=== PATIENT | female | born 1950 | race Caucasian/White ===

== ENCOUNTER 2017-01-28 08:41 | Emergency (ER) | payer OTHER ==
[~2017-01-28] VITALS: Ht 160 cm; Wt 77.1 kg
--- NOTE | 2017-01-28 09:07 | ED MVC/FALL/TRAUMA COMPLAINT ---
History of Present Illness General Chief Complaint: Low Back Pain/Injury Stated Complaint: FALL BACK PAIN Source: patient, family Exam Limitations: no limitations Vital Signs & Intake/Output Vital Signs & Intake/Output Vital Signs Date Time Temp Pulse Resp B/P Pulse O2 O2 Flow FiO2 Ox Delivery Rate 01/28 1034 84 16 146/78 97 Room Air 01/28 1010 98 Room Air 01/28 0847 97.2 91 20 112/78 98 Room Air Allergies Coded Allergies: Sulfa (Sulfonamide Antibiotics) (HIVES 01/28/17) Reconcile Medications Alprazolam 1 MG TABLET 1 TAB PO BIDP PRN ANXIETY (Reported) Liraglutide (Victoza 2-[place]) 0.6 MG/0.1 ML (18 MG/3 ML) PEN.INJCTR DM (Reported) Triage Note: PT STATES SHE SLIPPED GETTING OUT OF BATHTUB AND HIT HER BACK IN THE MIDDLE ON THE TUB. PT DENIES HITTING HEAD. STATES NOW THE PAIN GOES AROUND HER TRUNK. STATES THIS HAPPENED YESTERDAY AND SHE COULDN'T SLEEP LAST NIGHT D/T PAIN Triage Nurses Notes Reviewed? yes HPI: Patient presents for evaluation of back and abdominal pain status post fall yesterday. Patient states that she slipped on a wet spot in the bathtub and fell back hitting the tub with her mid back. She had abrupt onset of continuous moderate to severe back pain that gets worse with movement. It is a sharp stabbing pain. She tried ibuprofen without relief. She denies any associated ecchymoses or soft tissue swelling. Past History Travel History Traveled to [place] past 21 day No Medical History Any Pertinent Medical History? see below for history Psychiatric: depression Endocrine: diabetes Surgical History Surgical History: non-contributory Psychosocial History What is your primary language Guatemalan Tobacco Use: Never used ETOH Use: denies use Illicit Drug Use: denies illicit drug use Family History Hx Contributory? No Review of Systems Review of Systems Constitutional: Reports: no symptoms. Eyes: Reports: no symptoms. Ears, Nose, Throat, Mouth: Reports: no symptoms. Respiratory: Reports: no symptoms. Cardiovascular: Reports: no symptoms. Gastrointestinal/Abdominal: Reports: no symptoms. Genitourinary: Reports: no symptoms. Musculoskeletal: Reports: see HPI. Skin: Reports: no symptoms. Neurological/Psychological: Reports: no symptoms. All Other Systems: Reviewed and Negative Physical Exam Physical Exam General Appearance: SEE BELOW Comments: Gen.: Well-nourished, well-developed, no acute respiratory distress. Head: Normocephalic, atraumatic, nontender. Eyes: Normal inspection bilaterally, kareem, EOMI Ears: Normal inspection bilaterally Nose: Normal inspection Throat/mouth : Moist mucosa Neck: Supple, full range of motion, no goiter, nontender Heart: Regular rate and rhythm, no murmurs rubs or gallops Lungs: Clear to auscultation bilaterally with normal air entry Chest: Nontender Back: Normal range of motion, tenderness over the mid back bilaterally without associated ecchymoses and soft tissue swelling or abrasion. Abdomen: Soft, nontender, nondistended, normal bowel sounds Pelvis: Stable and nontender Extremities: Normal range of motion grossly, no tenderness, no cyanosis clubbing or edema Neurologic: Cranial nerves grossly intact, speech is clear Skin: warm and dry and without ecchymoses or soft tissue swelling or erythema Psychiatric: Calm, cooperative, no apparent delusions or hallucinations Core Measures ACS in differential dx? No Severe Sepsis Present: No Septic Shock Present: No Progress Differential Diagnosis: CHEST TRAUMA, ABDOMINAL TRAUMA, BACK TRAUMA Plan of Care: Orders Procedure Date/time Status Saline Lock 01/28 907 Active URINALYSIS 01/28 907 Complete TROPONIN LEVEL 01/28 907 Complete PROTHROMBIN TIME 01/28 907 Complete LIPASE 01/28 907 Complete COMPREHENSIVE METABOLIC PANEL 01/28 09 Complete CBC WITHOUT DIFFERENTIAL 01/28 907 Complete Laboratory Tests 01/28/17 1140: Urine Color YEL, Urine Clarity CLEAR, Urine pH 6.5, Ur Specific [place] <= 1.005 , Urine Protein NEG, Urine Ketones NEG, Urine Nitrite NEG, Urine Bilirubin NEG, Urine Urobilinogen 0.2, Ur Leukocyte Esterase NEG, Ur Microscopic EXAM NOT REQUIRED, Urine Hemoglobin NEG, Urine Glucose 500 H 01/28/17 0920: Anion Gap 7, Estimated GFR > 60, BUN/Creatinine Ratio 16.7, Glucose 223 H, Calcium 9.0, Total Bilirubin 0.8, AST 129 H, ALT 79 H, Alkaline Phosphatase 122, Troponin I < 0.01, Total Protein 7.0, Albumin 3.8, Globulin 3.2, Albumin/ Globulin Ratio 1.2, Lipase 149, PT 12.5, INR 1.19, CBC w Diff NO MAN DIFF REQ, RBC 4.93, MCV 82.6, MCH 26.7 L, RDW 16.2 H, MPV 9.6, Gran % 67.3, Lymphocytes % 24.8, Monocytes % 6.3, Eosinophils % 1.2, Basophils % 0.4, Absolute Granulocytes 5.4, Absolute Lymphocytes 2.0, Absolute Monocytes 0.5, Absolute Eosinophils 0.1, Absolute Basophils 0, PUBS MCHC 32.3 L Diagnostic Imaging: Discussed w/RAD: CT Scan. Radiology Impression: PATIENT: DARVIN PARDO PRESENT AGE: 66 PATIENT ACCOUNT NO: [id number] : 51 LOCATION: [facility] ORDERING PHYSICIAN: ELIAN PEÑA MD SERVICE DATE: 01/28/17 EXAM TYPE: CAT - CT ABD & PELVIS W IV CONTRAST; CT CHEST W IV CONTRAST EXAMINATION: CT CHEST, ABDOMEN AND PELVIS WITH CONTRAST CLINICAL INFORMATION: 66 year old female , status post fall, striking mid back on the tub. Suspected chest trauma. COMPARISON: No pertinent prior studies are available for comparison. TECHNIQUE: Multidetector volumetric imaging was performed from the thoracic inlet through the pubic symphysis following administration of intravenous contrast of 95 mL of Optiray 320. Sagittal and coronal reformatted images were obtained on the technologist's workstation. DLP: 703.63 mGy-cm. FINDINGS: CHEST: Lungs: There are 4 subtle sub-5 mm noncalcified lung parenchymal, emerson-fissural lung nodules are identified within the right upper lobe and right middle lobe (see the larsen images). Mild hypoventilatory changes are noted at the dependent part of both lung gage. The tracheobronchial tree appeared patent. Mediastinum: Abnormal enlarged heterogeneous calcified thyroid gland is noted with evidence of calcification. Lobulated mass-like extension of the inferior part of the thyroid gland is noted into the anterosuperior mediastinum, consistent with multinodular goiter. Follow up dedicated thyroid ultrasound may be considered for further full detail evaluation. Atherosclerotic disease is noted within the aorta and its branches. The ascending thoracic aorta at the level of the main pulmonary artery measures approximately 3.3 x 3.4 cm. The origin of the great vessels appear to be patent. There is no evidence of any aortic dissection present. There are no pathologically enlarged mediastinal, hilar lymphadenopathy present. No evidence of any mediastinal hematoma seen. Pericardium/Pleura: There is no significant effusion. No pleural mass or thickening. Chest Wall/Axilla: Unremarkable. ABDOMEN/PELVIS: Liver, Gallbladder, Biliary Tree: The liver is normal in size, shape, and attenuation. No focal hepatic lesion or biliary ductal dilatation is present. The gallbladder is unremarkable with no evidence of radiopaque gallstones, gallbladder wall thickening, or pericholecystic inflammatory changes. Pancreas: Unremarkable. Spleen: Multiple well- circumscribed hypodense lesions are seen, varying in size between 0.8 cm to 1.7 cm at their maximum dimensions. The appearance is nonspecific, may represent incidental cysts versus metastasis versus lymphoma. The spleen measures 12.2 cm at its maximum craniocaudal dimension. Adrenal Glands: Unremarkable. Kidneys And Ureters: The kidneys are normal in size, shape, and attenuation. No hydronephrosis or hydroureter or calculi seen. No perinephric stranding. Bladder : Unremarkable. Gastrointestinal Tract: The small and large bowel are unremarkable. The appendix is not visualized. Abdominal Wall: No hernia is demonstrated. Lymph Nodes: Normal. Vascular: Mild diffuse atherosclerotic changes are noted within the aorta and its branches. Pelvic Viscera: There is no pelvic mass present. There is no free fluid and/or free air present. Osseous Structures: Scoliotic, multilevel degenerative spondylosis- changes are present with underlying mild diffuse osteopenia. No definite evidence of any compression fracture, displaced rib fracture or paraspinal hematoma identified. IMPRESSION: 1. No CT evidence of any acute intrathoracic and/or intra-abdominal and/or intrapelvic pathology is present. 2. Incidental note is made of multinodular goiter showing superior mediastinal extension. Follow up thyroid ultrasound may be considered for further clarification. 3. Note is also made of at least 4 subtle sub-5 mm noncalcified nonspecific lung parenchymal, perifissural nodules seen at right upper and middle lobe of the lung. In the absence of any prior study for comparison, close interval imaging follow up surveillance is recommended. 4. Multifocal nonspecific hypodense lesion within the spleen, not optimally characterized. Differential diagnostic consideration is given as above. Various management parameters for solitary pulmonary nodules are in the literature. According to the Fleischner Society, recommendations for pulmonary nodules are as follows: Nodule size < or = to 4 mm in LOW RISK PATIENTS: No follow up needed. Nodule size < or = to 4 mm in HIGH RISK PATIENTS: Follow up CT at 12 months; if unchanged, no further follow up. Nodule size > 4-6 mm in LOW RISK PATIENTS: Follow up CT at 12 months; if unchanged, no further follow up. Nodule size > 4-6 mm in HIGH RISK PATIENTS: Initial follow up CT at 6 -12 months, then at 18-24 months if no change. Nodule size > 6-8 mm in LOW RISK PATIENTS: Initial follow up CT at 6-12 months, then at 18-24 months if no change. Nodule size > 6-8 mm in HIGH RISK PATIENTS: Initial follow up CT at 3-6 months, then 9-12 months and 24 months if no change. Nodule size > 8 mm in LOW RISK PATIENTS: Follow up CT at around 3, 9, and 24 months, dynamic contrast- enhanced CT, PET, and/or biopsy. Nodule size > 8 mm in HIGH RISK PATIENTS: Same as for low-risk patients. DICTATED BY: DEMETRIS GAR MD DATE/TIME DICTATED:1034 LOCAL SUPERINTENDENT:LIZBETH DATE/TIME TRANSCRIBED:01/28/171034 CONFIDENTIAL, DO NOT COPY WITHOUT APPROPRIATE AUTHORIZATION. <Electronically signed in Other Vendor System> SIGNED BY: DEMETRIS GAR MD 01/28/17 1141 Comments: 01/28/2017 9:49:46 AM according to the patient's , she is feeling better after medication. Departure Departure Disposition: HOME OR SELF CARE Condition: Stable Clinical Impression Primary Impression: Strain of mid-back Qualifiers: Encounter type: initial encounter Qualified Code: S29.012A - Strain of muscle and tendon of back wall of thorax, initial encounter Secondary Impressions: Abdominal wall strain Qualifiers: Encounter type: initial encounter Qualified Code: S39.011A - Strain of muscle, fascia and tendon of abdomen, initial encounter Fall Lesion of spleen Multinodular goiter Pulmonary nodules Referrals: GABINO ABRAHAM,YOUSIF Rondon (PCP/Family) Additional Instructions: REST, no exertion or heavy lifting. Ibuprofen 600 mg every 6 hours as needed for pain. Add tramadol if necessary. Ice to any areas of swelling. Follow-up with your primary care doctor within the next 24-48 hours for reevaluation. Return if any concerns or sudden worsening. Please note that there were incidental findings on your CAT scan including multinodular goiter and pulmonary nodules. These will need to be monitored. Please note that there might be incidental findings in your evaluation that are unrelated to the current emergency department visit. Please notify your primary care doctor about this emergency department visit in order to obtain and review all of the testing performed so that these incidental findings can be monitored as needed. If you had an x-ray performed, please understand that some fractures may not be seen on the initial set of x-rays. If your symptoms persist you might need a repeat set of x-rays to check for such a fracture. If you had a laceration evaluated, please understand that foreign bodies such as glass or wood may not be visible to the naked eye or on plain x-rays. If the wound becomes red, swollen, increasingly more painful or if there is any drainage from the wound, please have it reevaluated by a physician for the possibility of a retained foreign body. Thank you for choosing the [facility] for your care. It was a pleasure to serve you today. Elian Peña M.D. [facility] Departure Forms: Customer Survey General Discharge Information Prescriptions: Current Visit Scripts Tramadol HCl (Ultram) 1-2 TAB PO Q6P PRN PAIN #20 TAB Ibuprofen 1 TAB PO Q6P PRN PAIN #20 TAB with food
[2017-01-28 09:33] LABS: ABSOLUTE BASOPHIL COUNT 0 /CUMM (0.0-0.2); ABSOLUTE EOSINOPHIL COUNT 0.1 /CUMM (0.0-0.7); ABSOLUTE GRANULOCYTE CT 5.4 /CUMM (1.4-6.5); ABSOLUTE MONOCYTE COUNT 0.5 /CUMM (0.10-0.60); BASOPHIL % 0.4 % (0.0-2.0); EOSINOPHIL % 1.2 % (0-5); GRANULOCYTE % 67.3 % (42.2-75.2); HEMATOCRIT 40.7 % (37-47); MEAN CORPUSCULAR HGB 26.7 PG (27.0-31.0); MEAN CORPUSCULAR HGB CONC 32.3 G/DL (33.0-37.0); MEAN CORPUSCULAR VOLUME 82.6 FL (81.0-99.0); MEAN PLATELET VOLUME 9.6 FL (7.4-10.4); PLATELET COUNT 175 /CUMM (130-400); RBC DISTRIBUTION WIDTH 16.2 % (11.5-14.5); RED BLOOD CELL CT 4.93 /CUMM (4.20-5.40); WHITE BLOOD CELL COUNT 7.9 /CUMM (4.8-10.8)
[2017-01-28 09:34] LABS: PT 12.5 SEC (9.4-12.5)
[2017-01-28] MEDS ORDERED: VICTOZA 2-0.6 MG/0.1 (10:10)
[2017-01-28] MEDS ORDERED: ALPRAZOLAM1 M2 PO (10:10)
--- NOTE | 2017-01-28 11:41 | CT SCAN REPORT ---
EXAMINATION: CT CHEST, ABDOMEN AND PELVIS WITH CONTRAST CLINICAL INFORMATION: 66 year old female, status post fall, striking mid back on the tub. Suspected chest trauma. COMPARISON: No pertinent prior studies are available for comparison. TECHNIQUE: Multidetector volumetric imaging was performed from the thoracic inlet through the pubic symphysis following administration of intravenous contrast of 95 mL of Optiray 320. Sagittal and coronal reformatted images were obtained on the technologist's workstation. DLP: 703.63 mGy-cm. FINDINGS: CHEST: Lungs: There are 4 subtle sub-5 mm noncalcified lung parenchymal, emerson-fissural lung nodules are identified within the right upper lobe and right middle lobe (see the larsen images). Mild hypoventilatory changes are noted at the dependent part of both lung gage. The tracheobronchial tree appeared patent. Mediastinum: Abnormal enlarged heterogeneous calcified thyroid gland is noted with evidence of calcification. Lobulated mass-like extension of the inferior part of the thyroid gland is noted into the anterosuperior mediastinum, consistent with multinodular goiter. Follow up dedicated thyroid ultrasound may be considered for further full detail evaluation. Atherosclerotic disease is noted within the aorta and its branches. The ascending thoracic aorta at the level of the main pulmonary artery measures approximately 3.3 x 3.4 cm. The origin of the great vessels appear to be patent. There is no evidence of any aortic dissection present. There are no pathologically enlarged mediastinal, hilar lymphadenopathy present. No evidence of any mediastinal hematoma seen. Pericardium/Pleura: There is no significant effusion. No pleural mass or thickening. Chest Wall/Axilla: Unremarkable. ABDOMEN/PELVIS: Liver, Gallbladder, Biliary Tree: The liver is normal in size, shape, and attenuation. No focal hepatic lesion or biliary ductal dilatation is present. The gallbladder is unremarkable with no evidence of radiopaque gallstones, gallbladder wall thickening, or pericholecystic inflammatory changes. Pancreas: Unremarkable. Spleen: Multiple well-circumscribed hypodense lesions are seen, varying in size between 0.8 cm to 1.7 cm at their maximum dimensions. The appearance is nonspecific, may represent incidental cysts versus metastasis versus lymphoma. The spleen measures 12.2 cm at its maximum craniocaudal dimension. Adrenal Glands: Unremarkable. Kidneys And Ureters: The kidneys are normal in size, shape, and attenuation. No hydronephrosis or hydroureter or calculi seen. No perinephric stranding. Bladder: Unremarkable. Gastrointestinal Tract: The small and large bowel are unremarkable. The appendix is not visualized. Abdominal Wall: No hernia is demonstrated. Lymph Nodes: Normal. Vascular: Mild diffuse atherosclerotic changes are noted within the aorta and its branches. Pelvic Viscera: There is no pelvic mass present. There is no free fluid and/or free air present. Osseous Structures: Scoliotic, multilevel degenerative spondylosis- changes are present with underlying mild diffuse osteopenia. No definite evidence of any compression fracture, displaced rib fracture or paraspinal hematoma identified. IMPRESSION: 1. No CT evidence of any acute intrathoracic and/or intra-abdominal and/or intrapelvic pathology is present. 2. Incidental note is made of multinodular goiter showing superior mediastinal extension. Follow up thyroid ultrasound may be considered for further clarification. 3. Note is also made of at least 4 subtle sub-5 mm noncalcified nonspecific lung parenchymal, perifissural nodules seen at right upper and middle lobe of the lung. In the absence of any prior study for comparison, close interval imaging follow up surveillance is recommended. 4. Multifocal nonspecific hypodense lesion within the spleen, not optimally characterized. Differential diagnostic consideration is given as above. Various management parameters for solitary pulmonary nodules are in the literature. According to the Fleischner Society, recommendations for pulmonary nodules are as follows: Nodule size < or = to 4 mm in LOW RISK PATIENTS: No follow up needed. Nodule size < or = to 4 mm in HIGH RISK PATIENTS: Follow up CT at 12 months; if unchanged, no further follow up. Nodule size > 4-6 mm in LOW RISK PATIENTS: Follow up CT at 12 months; if unchanged, no further follow up. Nodule size > 4-6 mm in HIGH RISK PATIENTS: Initial follow up CT at 6-12 months, then at 18-24 months if no change. Nodule size > 6-8 mm in LOW RISK PATIENTS: Initial follow up CT at 6-12 months, then at 18-24 months if no change. Nodule size > 6-8 mm in HIGH RISK PATIENTS: Initial follow up CT at 3-6 months, then 9-12 months and 24 months if no change. Nodule size > 8 mm in LOW RISK PATIENTS: Follow up CT at around 3, 9, and 24 months, dynamic contrast-enhanced CT, PET, and/or biopsy. Nodule size > 8 mm in HIGH RISK PATIENTS: Same as for low-risk patients.
[2017-01-28] MEDS ORDERED: IBUPROFEN600 M1 PO (11:58)
[2017-01-28] MEDS ORDERED: ULTRAM50 M1 PO (11:58)
[2017-01-28 12:09] VITALS: BP 146/81
== END 2017-01-28 12:14 ==
LOC: ERH 08:41
PROVIDERS: Emergency Medicine
DX: S29.012A Strain of muscle and tendon of back wall of thorax, initial encounter (principal); S39.011A Strain of muscle, fascia and tendon of abdomen, initial encounter; W01.0XXA Fall on same level from slipping, tripping and stumbling without subsequent striking against object, initial encounter; Y93.9 Activity, unspecified; Y92.9 Unspecified place or not applicable
CPT/HCPCS: 74177; 81003; 96374